=== PATIENT | female | born 1955 | race Caucasian/White ===

== ENCOUNTER → 2017-02-08 | Outpatient (CLI) | payer OTHER | LOC: LAB 11:32 | DX: Z02.89 Encounter for other administrative examinations (principal); I25.10 Atherosclerotic heart disease of native coronary artery without angina pectoris | CPT/HCPCS: 71020; 86706; 86735; 86762; 86765; 86787 ==

== ENCOUNTER 2021-02-04 07:40 | Emergency (ER) | payer MEDICARE, OTHER ==
[~2021-02-04 07:40] MED LIST: LEVAQUIN500 MG PO
== END 2021-02-04 10:17 | disposition home or self-care (01) ==
LOC: ER1 07:40
DX: S83.91XA Sprain of unspecified site of right knee, initial encounter (principal); E11.9 Type 2 diabetes mellitus without complications; I10 Essential (primary) hypertension; G35 Multiple sclerosis; M19.90 Unspecified osteoarthritis, unspecified site; W18.2XXA Fall in (into) shower or empty bathtub, initial encounter
CPT/HCPCS: 29530; 70553; 72100; 72156; 72170; 73564; 99283; A9577

== ENCOUNTER 2021-02-24 07:29 | Emergency (ER) | payer MEDICARE, OTHER ==
[2021-02-24 07:59] LABS: HEMOGLOBIN 14.3 gm/dl (12.3-15.3); RED BLOOD COUNT 4.54 M/UL (4.00-5.10); WHITE BLOOD COUNT 6.9 K/UL (4.5-11.0)
[2021-02-24 08:22] LABS: BUN/CREATININE RATIO 14 (0-10)
[2021-02-24] MEDS ORDERED: MEDROL DOSEPAK 24 MG PO (10:42)
[2021-02-24] MEDS ORDERED: TORADOL 10 MG T10 MG PO (10:42)
== END 2021-02-24 10:57 | disposition home or self-care (01) ==
LOC: ER1 07:29
PROVIDERS: Student in an Organized Health Care Education/Training Program
DX: T81.9XXA Unspecified complication of procedure, initial encounter (principal); M79.602 Pain in left arm; M54.2 Cervicalgia; I25.10 Atherosclerotic heart disease of native coronary artery without angina pectoris; E11.9 Type 2 diabetes mellitus without complications; Z88.5 Allergy status to narcotic agent
CPT/HCPCS: 70450; 71045; 72125; 80053; 82550; 82553; 83735; 83874; 84100; 84484; 85025; 96374; 99284; J1885

== ENCOUNTER 2021-03-25 10:38 | Emergency (ER) | payer MEDICARE, OTHER ==
[~2021-03-25 10:38] MED LIST changes: +MEDROL DOSEPAK 24 MG PO; +TORADOL 10 MG T10 MG PO
[2021-03-25 12:29] LABS: BUN/CREATININE RATIO 20 (0-10)
[2021-03-25 12:30] LABS: HEMOGLOBIN 14.3 gm/dl (12.3-15.3); RED BLOOD COUNT 4.59 M/UL (4.00-5.10); WHITE BLOOD COUNT 5.1 K/UL (4.5-11.0)
== END 2021-03-25 14:40 | disposition home or self-care (01) ==
LOC: ER1 10:38 → CDU 13:53 → ER1 13:53 → CDU 14:40
PROVIDERS: Physician Assistant
DX: I26.99 Other pulmonary embolism without acute cor pulmonale (principal); E11.9 Type 2 diabetes mellitus without complications; Z79.01 Long term (current) use of anticoagulants; I82.409 Acute embolism and thrombosis of unspecified deep veins of unspecified lower extremity; I45.10 Unspecified right bundle-branch block; Z20.822 Contact with and (suspected) exposure to COVID-19; R91.1 Solitary pulmonary nodule; Z95.1 Presence of aortocoronary bypass graft; Z90.49 Acquired absence of other specified parts of digestive tract
CPT/HCPCS: 80053; 82550; 82553; 83874; 84484; 85025; 99285; G0378; Q9967; U0002

== ENCOUNTER → 2021-04-08 | Outpatient (CLI) | payer MEDICARE, OTHER | LOC: EMI 12:59 | DX: M43.17 Spondylolisthesis, lumbosacral region (principal); M51.16 Intervertebral disc disorders with radiculopathy, lumbar region | CPT/HCPCS: 72148 ==

== ENCOUNTER 2021-06-30 14:06 | Emergency (ER) | payer MEDICARE, OTHER | END 2021-06-30 20:53 | disposition home or self-care (01) | LOC: ER1 14:06 | DX: M54.50 Low back pain, unspecified (principal); E11.9 Type 2 diabetes mellitus without complications; Z90.710 Acquired absence of both cervix and uterus; Z90.49 Acquired absence of other specified parts of digestive tract; Z95.1 Presence of aortocoronary bypass graft | CPT/HCPCS: 72131; 81001; 96372; 99285; J2360 ==

== ENCOUNTER 2021-08-22 19:27 | Emergency (ER) | payer MEDICARE, OTHER ==
[2021-08-22 20:36] LABS: HEMOGLOBIN 14.5 gm/dl (12.3-15.3); RED BLOOD COUNT 4.69 M/UL (4.00-5.10); WHITE BLOOD COUNT 4.8 K/UL (4.5-11.0)
[2021-08-22 21:14] LABS: BUN/CREATININE RATIO 25 (0-10)
== END 2021-08-22 22:00 | disposition home or self-care (01) ==
LOC: ER1 19:27
PROVIDERS: Physician Assistant
DX: S40.021A Contusion of right upper arm, initial encounter (principal); E11.9 Type 2 diabetes mellitus without complications; Z79.82 Long term (current) use of aspirin; Z88.2 Allergy status to sulfonamides; I48.91 Unspecified atrial fibrillation; X58.XXXA Exposure to other specified factors, initial encounter
CPT/HCPCS: 80053; 85025; 85610; 85730; 99283

== ENCOUNTER → 2021-08-23 | Outpatient (CLI) | payer MEDICARE, OTHER | LOC: US 10:02 | DX: R22.31 Localized swelling, mass and lump, right upper limb (principal) | CPT/HCPCS: 93971 ==

== ENCOUNTER → 2021-08-24 | Outpatient (CLI) | payer MEDICARE, OTHER | LOC: EMI 15:13 | DX: M51.16 Intervertebral disc disorders with radiculopathy, lumbar region (principal); M48.061 Spinal stenosis, lumbar region without neurogenic claudication | CPT/HCPCS: 72158; A9577 ==

== ENCOUNTER → 2021-09-22 | Outpatient (CLI) | payer MEDICARE, OTHER | LOC: RAD 17:49 | DX: M79.2 Neuralgia and neuritis, unspecified (principal) | CPT/HCPCS: 73060 ==

== ENCOUNTER → 2021-10-10 | Outpatient (CLI) | payer MEDICARE, OTHER | LOC: MRI 09:26 | DX: M25.511 Pain in right shoulder (principal); M75.101 Unspecified rotator cuff tear or rupture of right shoulder, not specified as traumatic | CPT/HCPCS: 73221 ==

== ENCOUNTER → 2021-12-08 | Outpatient (CLI) | payer MEDICARE | LOC: KOH-I 15:30 | DX: M79.662 Pain in left lower leg (principal); M79.89 Other specified soft tissue disorders | CPT/HCPCS: 93971 ==